=== PATIENT | female | born 1995 | race American Indian/Alaskan Native ===

== ENCOUNTER 2021-04-23 20:20 | Emergency (ER) | payer MEDICAID, SELFPAY ==
[2021-04-23] VITALS (10 sets, daily range): BP systolic 114–147; BP diastolic 56–75; PULSE 85–98; RESP 17; TEMP 36.5; O2SAT 76–100; BMI 40.6
[2021-04-23 20:49] LABS: Add Manual Diff / Slide Review NO; Basophils Absolute Auto 0 /uL (0-100); Basophils Percent Auto 0.2 % (0-2); Eosinophils Absolute Auto 100 /uL (0-450); Eosinophils Percent Auto 0.4 % (2-4); Hematocrit 36.2 % (36-46); Hemoglobin 11.8 g/dL (12.0-16.0); Lymphocytes Absolute Auto 2100 /uL (1100-4500); Lymphocytes Percent Auto 13.3 % (25-40); Mean Corpuscular HGB Conc 32.6 % (30-36); Monocytes Absolute Auto 900 /uL (0-900); Monocytes Percent Auto 5.5 % (3-14); Neutrophils Absolute Auto 12700 /uL (1500-7000); Neutrophils Percent Auto 80.6 % (50-75); Platelet Count 242 X10^3/uL (150-400); Red Blood Cell Count 4.21 X10^6/uL (4.0-5.2); Red Cell Distribution Width 13.7 % (11.6-14.8); White Blood Cell Count 15.7 X10^3/uL (4.5-11.0)
[2021-04-23 20:55] LABS: Alanine Aminotransferase 25 IU/L (<35); Albumin Globulin Ratio 1.1 (1.0-2.8); Alkaline Phosphatase 75 U/L (38-126); Aspartate Aminotransferase 45 IU/L (14-36); BUN Creatinine Ratio 11.1 (6-22); Bilirubin Total 0.5 mg/dL (0.2-1.3); Blood Urea Nitrogen 9 mg/dL (7-17); Calcium 9.3 mg/dL (8.4-10.2); Carbon Dioxide 27 mmol/L (22-32); Chloride 102 mmol/L (98-107); Estimated Glomerular Filt Rate > 60.0 mL/min (>60); Globulin 3.6 g/dL (1.7-4.1); Glucose 89 mg/dL (70-100); HEMOLYSIS < 15 (0-50); Lipase 59 U/L (23-300); Sodium 139 mmol/L (137-145); Total Protein 7.6 g/dL (6.3-8.2)
--- NOTE | 2021-04-23 21:03 | ED.GENADULT ---
HPI - General Adult General Chief complaint: Abdominal Pain Stated complaint: BAD ABD PAIN VOMITING Time Seen by Provider: 04/23/21 20:24 Source: patient Mode of arrival: Ambulatory Limitations: no limitations History of Present Illness HPI narrative: Patient is a 25-year-old female with bilateral upper abdominal tenderness associated with nausea and vomiting. No change in bowel habits. No fevers. She has had her gallbladder removed. She states that this feels somewhat similar to when she had pancreatitis around the time that she had her gallbladder removed. States the pain is not any better worse when she vomits. Not any better worse when she urinates. Related Data Allergies Allergy/AdvReac Type Severity Reaction Status Date / Time haloperidol [From Haldol] Allergy Verified 04/23/21 21:39 metoclopramide [From Reglan] Allergy Verified 04/23/21 21:39 Review of Systems Constitutional Constitutional: Denies fever(s) Cardiovascular Cardiovascular: Denies chest pain and Denies dyspnea Respiratory Respiratory: Denies dyspnea Gastrointestinal Gastrointestinal: Reports abdominal pain, Denies constipation, Denies diarrhea, Reports nausea and Reports vomiting Genitourinary Genitourinary: Denies dysuria Genitourinary: Denies dysuria Musculoskeletal Musculoskeletal: Reports system reviewed and no additional complaints, except as documented Integumentary/Breasts Skin/Breast: Reports system reviewed and no additional complaints, except as documented Neurologic Neurologic: Reports system reviewed and no additional complaints, except as documented Hematologic/Lymphatic Hematologic/Lymphatic: Reports system reviewed and no additional complaints, except as documented Allergic/Immunologic Allergic/Immunologic: Reports system reviewed and no additional complaints, except as documented Patient History Medical History Healthy adult Surgical History History of cholecystectomy Social History Smoking Status: Never smoker Smoking Status: Never smoker Substance Use Type: does not use Exam Initial Vital Signs Initial Vital Signs: Vital Signs Temperature 97.7 F 04/23/21 20:25 Pulse Rate 98 H 04/23/21 20:25 Respiratory Rate 17 04/23/21 20:25 Blood Pressure 127/75 04/23/21 20:25 Pulse Oximetry 98 04/23/21 20:25 Const General: cooperative and comfortable Limitations: mental status not altered [facility] Head: normal to inspection and normocephalic Resp Effort & Inspection: normal respiratory effort Auscultation: clear to auscultation bilaterally Cardio Rate: regular rate Rhythm: regular rhythm GI Inspection: non-distended Palpation: soft, No firm and tender (Upper abdomen bilateral) Back/Spine/Pelvis Back: No CVA tenderness Skin Lesions: no lesions Rashes: no rashes Neuro General: patient alert and patient awake Cognition: normal cognition Speech: speech normal Extrem General: normal to inspection and capillary refill normal Psych Appearance: grossly normal and well kempt Course Orders Ordered: ED Orders 04/23/21 20:30 Complete Blood Count AUTO DIFF Stat Comprehensive Metabolic Panel Stat Lipase Stat Test Serum,Qual Stat 04/23/21 21:03 CT abdomen pelvis w con Stat Discontinued Medications Sodium Chloride (Normal Saline 0.9%) 1,000 mls @ 1,000 mls/hr IV BOLUS ONE Stop: 04/23/21 22:39 Last Infusion: 04/23/21 22:54 Dose: 0 mls/hr Documented by: Admin: 04/23/21 21:48 Dose: 1,000 mls/hr Documented by: BRYN Morphine Sulfate (Morphine 4 Mg/Ml Inj) 4 mg IV NOW ONE Stop: 04/23/21 21:39 Last Admin: 04/23/21 21:48 Dose: 4 mg Documented by: BRYN Ondansetron HCl (Ondansetron 4 Mg/2 Ml Inj) 4 mg IV NOW ONE Stop: 04/23/21 21:39 Last Admin: 04/23/21 21:48 Dose: 4 mg Documented by: BRYN Ondansetron HCl (Ondansetron 4 Mg Odt Prepack) 1 bottle MISC SEEINSTR ONE Stop: 04/23/21 23:12 Last Admin: 04/23/21 23:33 Dose: 1 bottle Documented by: VANE Vital Signs Vital signs: Vital Signs - 8 hr 04/23/21 20:25 04/23/21 21:07 04/23/21 21:30 Temperature 97.7 F Pulse Rate 98 H 89 90 Respiratory Rate 17 Blood Pressure 127/75 Pulse Oximetry 98 100 100 04/23/21 21:31 04/23/21 22:05 04/23/21 22:30 Temperature Pulse Rate 85 88 85 Respiratory Rate Blood Pressure 121/69 Pulse Oximetry 100 76 L 99 04/23/21 23:00 04/23/21 23:23 04/23/21 23:24 Temperature Pulse Rate 89 Respiratory Rate Blood Pressure 147/74 H 114/56 L Pulse Oximetry 99 95 04/23/21 23:25 Temperature Pulse Rate 89 Respiratory Rate Blood Pressure 114/56 L Pulse Oximetry 96 Medical Decision Making Lab Data Lab results reviewed: Yes I reviewed the patient's lab results. Result diagrams: 04/23/21 20:30 04/23/21 20:30 Labs: Lab Results 04/23/21 04/23/21 04/23/21 Range/Units 20:30 20:30 20:30 WBC 15.7 H (4.5-11.0) X10^3/uL RBC 4.21 (4.0-5.2) X10^6/uL Hgb 11.8 L (12.0-16.0) g/dL Hct 36.2 (36-46) % MCV 86.0 (80-100) fL MCH 28.0 (26-34) PG MCHC 32.6 (30-36) % RDW 13.7 (11.6-14.8) % Plt Count 242 (150-400) X10^3/uL Neut % (Auto) 80.6 H (50-75) % Lymph % (Auto) 13.3 L (25-40) % Morton % (Auto) 5.5 (3-14) % Eos % (Auto) 0.4 L (2-4) % Baso % (Auto) 0.2 (0-2) % Neut # (Auto) 73398 H (6308-8436) /uL Lymph # (Auto) 2100 (8381-4881) /uL Morton # (Auto) 900 (0-900) /uL Eos # (Auto) 100 (0-450) /uL Baso # (Auto) 0 (0-100) /uL Sodium 139 (137-145) mmol/L Potassium 3.0 L (3.4-5.1) mmol/L Chloride 102 (98-107) mmol/L Carbon Dioxide 27 (22-32) mmol/L BUN 9 (7-17) mg/dL Creatinine 0.81 (0.52-1.04) mg/dL Estimated GFR > 60.0 (>60) mL/min BUN/Creatinine Ratio 11.1 (6-22) Glucose 89 (70-100) mg/dL Calcium 9.3 (8.4-10.2) mg/dL Total Bilirubin 0.5 (0.2-1.3) mg/dL AST 45 H (14-36) IU/L ALT 25 (<35) IU/L Alkaline Phosphatase 75 (38-126) U/L Total Protein 7.6 (6.3-8.2) g/dL Albumin 4.0 (3.5-5.0) g/dL Globulin 3.6 (1.7-4.1) g/dL Albumin/Globulin Ratio 1.1 (1.0-2.8) Lipase 59 (23-300) U/L Serum , Qual Negative (Negative) Urine Dip Bedside Urine Glucose Negative Bedside Urine Bilirubin - Negative Bedside Urine Ketone - Negative Urine Specific [place] 1.010 Bedside Urine Occult Blood - Negative Bedside Urine pH 6 Bedside Urine Protein - Negative Bedside Urine Urobilinogen - Negative Bedside Urine Nitrite - Negative Bedside Urine Leukocytes - Negative Esterase Point of care testing: Urine Dip Bedside Urine Glucose Negative Bedside Urine Bilirubin - Negative Bedside Urine Ketone - Negative Urine Specific [place] 1.010 Bedside Urine Occult Blood - Negative Bedside Urine pH 6 Bedside Urine Protein - Negative Bedside Urine Urobilinogen - Negative Bedside Urine Nitrite - Negative Bedside Urine Leukocytes - Negative Esterase Imaging Data CT scan - abdomen/pelvis: Radiologist's Impression: [address] [id number] Scan ReportSigned Patient: Shonda Novak [facility]#: [id number]: 1995Acct:[id number]/Sex: 25 / FDate of Service: 04/23/21Loc: EDAccession Number: [id number] Procedure: CT abdomen pelvis w con Ordering Provider: Vinnie Sidhu D.O. PROCEDURE: CT ABDOMEN PELVIS W CON INDICATIONS: Upper abdominal discomfort with nausea and vomiting TECHNIQUE: After the administration of intravenous contrast, axial sections acquired from the lung bases to the pubic symphysis. Coronal and sagittal reformats were performed. For radiation dose reduction, the following was used: automated exposure control, adjustment of mA and/or kV according to patient size. COMPARISON: None. FINDINGS: Image quality: Excellent. Lung bases: Unremarkable. Heart: No significant findings. ABDOMEN: Liver: Prominent in size, with no focal lesions. Gallbladder: Removed. Biliary ducts: Unremarkable. Pancreas: Unremarkable. Spleen: Unremarkable. Adrenal Glands: Unremarkable. Kidneys and Ureters: Unremarkable. Stomach and Bowel: Stomach, small bowel loops, and colon are unremarkable. Hyperdense material can be seen within the ascending colon. Please correlate with ingestions, such as Pepto-Bismol. A normal appendix is incidentally noted. Peritoneum: No abnormal intraperitoneal fluid. No free air. Ventral Wall: A mild periumbilical hernia is seen, containing fat. Abdominal Nodes: No retroperitoneal or mesenteric adenopathy by size criteria. Vessels: Aorta and inferior vena cava are normal in size. PELVIS: Pelvic Organs: A small uterus is seen, as on series 5, image 58. Bladder: Hyperdense urine is seen, likely related to bolus timing. Pelvic Nodes: No enlarged lymph nodes. Miscellaneous: No hernias are seen. Bones: Unremarkable. IMPRESSION: No imaging explanation is found for this patient's presenting symptoms. Incidental note is made of: Cholecystectomy Prominent liver size Fat containing periumbilical hernia Small uterus size Normal appendix Note: No significant discrepancy from the preliminary report. Dictated by: Augustine Mcwilliams M.D. on 04/23/2021 at 22:04 Approved by: Augustine Mcwilliams M.D. on 04/23/2021 at 22:07 [facility] Narrative Medical decision making narrative: She does have a leukocytosis however there is no indication of any surgical or infectious in etiology requiring antibiotics. CT scan of the abdomen shows no acute pathology. Urine clean. I did discuss this with the patient. We will hold on any antibiotics for now. Will send home with prescription for nausea medicine. She was given return precautions and follow-up instructions. She expressed understanding and agreement. Discharge Plan Departure Patient Disposition: Home Clinical Impression: Abdominal pain Instructions: DI for Abdominal Pain-Adult Activity Restrictions/Additional Instructions: Unfortunately the workup here in the emergency department did not give us a specific diagnosis of your abdominal pain however does not appear to be an issue that would require antibiotics. It is certainly not a surgical issue today. I recommend that you eat a bland diet. Use the nausea medication as needed. I would not be surprised if you develop some diarrhea as this is frequently associated with individuals who have abdominal pain. Contact your primary provider for follow-up. You can take Tylenol or ibuprofen for discomfort. Return to the emergency department for any new symptoms.
[2021-04-23] MEDS: ONDANSETRON 4 MG/2 ML INJ IV (21:48)
[2021-04-23] MEDS: MORPHINE 4 MG/ML INJ IV (21:48)
[2021-04-23] MEDS: SODIUM CHLORIDE 0.9% 1,000 ML 1000 ML IV (21:48)
[2021-04-23 21:49] LABS: Pregnancy Test Serum,Qual Negative (Negative)
[2021-04-23] MEDS: ONDANSETRON 4 MG ODT PREPACK 1 BOTTLE MISC (23:33)
== END 2021-04-23 23:34 | disposition home or self-care (01) ==
PROVIDERS: Emergency Provider Emergency Medicine
DX: R10.10 Upper abdominal pain, unspecified (principal); R11.2 Nausea with vomiting, unspecified
CPT/HCPCS: 36415; 74177; 80053; 81003; 83690; 84703; 85025; 96361; 96374; 96375; 99284; J2270; J2405; Q9967